=== PATIENT | female | born 1995 | race Caucasian/White ===

== ENCOUNTER 2022-09-12 22:18 | Inpatient (IN) ==
[2022-09-12] MEDS ORDERED: OXYTOCIN 30 UNITS/500 ML BAG IV PRN ×2 (23:20)
[2022-09-12] MEDS ORDERED: LIDOCAINE 1% LOCAL 20 ML VIAL INFIL PRN (23:20)
--- NOTE | 2022-09-12 23:27 | History & Physical Report ---
Date of Service September 12, 2022 Assessment & Plan (1) Supervision of normal intrauterine in primigravida: Plan: Admit to L&D. EFM/toco. Labs. Will add CMP d/t initial BPs elevated - will continue to monitor blood pressures. She plans for an epidural. History of Present Illness Chief Complaint: spontaneous labor Primary Care Provider: Nicoledl Dempsey, 26yo @ 38 10/29, presented to L&D with contractions and cervical mucus discharge - concerned that she maybe ruptured membranes. + movement, no vaginal bleeding. Allergies Allergy/AdvReac Type Severity Reaction Status Date / Time amoxicillin Allergy Hives Verified 09/07/22 15:12 hydrocodone AdvReac Vomiting Verified 09/07/22 15:12 Home Medications Medication Instructions Recorded Confirmed Type cetirizine 10 mg tablet (Zyrtec) 10 mg PO DAILY PRN Allergy Symptoms 02/04/22 09/12/22 History escitalopram oxalate 10 mg tablet 10 mg PO DAILY 02/04/22 09/12/22 History (Lexapro) prenat.vits,dennis,[id number] 1 tab PO DAILY 02/04/22 09/12/22 History Patient History Medical History (Updated 09/12/22 @ 22:36 by Alma Koenig RN) Bunion of great toe of left foot Surgical History (Updated 02/04/22 @ 15:32 by Jeanine Simental) S/P wisdom tooth extraction Family History (Updated 02/04/22 @ 15:27 by Jeanine Simental) Mother Breast cancer Gestational diabetes Grandmother (Paternal) Ovarian cancer Other Anemia Diabetes Dyslipidemia Heart disease Hypertension Osteoporosis Social History (Updated 02/04/22 @ 15:16 by Jeanine Simental) Smoking Status: Never smoker Hx Alcohol Use: No Hx Substance Use: No Preferred Language: Russian Communication Ability: Effective Vulcanizer Required: No Beliefs That Will Affect Care: None marital status: marital status details: Kenn (29) [phone] Current Living Situation: Spouse Current Living Situation Comment: Kenn current occupational status: employed current occupation: Teacher Other Information That Helps Us Care for You: No Feels Safe at Home: Yes Safety Concerns: Feels Safe At This Time Assistive Devices: None Review of Systems All systems reviewed & are unremarkable except as noted in HPI & below Physical Exam Physical Exam: FHT Cat 1 [place] Q 2-4 min SVE 4/100/-1, bulging membranes. Neg nitrizine, neg pooling, neg valsalva. There is copious cervical mucus. Constitutional: WD/WN, vitals as above Respiratory: normal respiratory effort, lungs clear to auscultation no respiratory distress Cardiovascular: Rate/Rhythm: regular rate and regular rhythm Gastrointestinal (Abdomen): Inspection/Auscultation: abdomen normal to inspection Percussion/Palpation: abdomen soft; abdomen nontender Gravid. No s/s chorio or abruption. Skin: no rashes, warm and dry Psychiatric: A+Ox3, euthymic affect Results & Data ([facility]) Vital Signs (Past 12 Hours) Vital Signs Temp Pulse Resp BP 09/12/22 22:56 70 149/94 H 09/12/22 22:45 73 143/90 H 09/12/22 22:38 36.7 C 18 Coding Level of Care Code None Diagnoses Supervision of normal intrauterine in primigravida Z34.00
[2022-09-12] MEDS: LACTATED RINGER'S 1,000 ML IV PRN (23:45)
[2022-09-12] MEDS ORDERED: fentaNYL citrate 100 MCG/2 ML VIAL ONE (23:48)
[2022-09-12] MEDS ORDERED: ePHEDrine sulfate 50 MG/ML AMP ONE (23:48)
[2022-09-12] MEDS ORDERED: SODIUM CHLORIDE 0.9% INJ 10 ML VIAL ONE (23:49)
[2022-09-12] MEDS ORDERED: LIDOCAINE 2%/EPINEPHRINE 1:200,000 20 ML SDV ONE (23:49)
[2022-09-12] MEDS ORDERED: BUPIVACAINE 0.25% 30 ML VIAL ONE (23:49)
[2022-09-12] MEDS ORDERED: fentaNYL 2MCG/ML ROPIVACAINE 1.25MG/ML 100 ML BAG EPI ONE (23:50)
[2022-09-13 00:05] LABS: Albumin Globulin Ratio 1.2 (0.9-2); Albumin Level 4.1 gm/dl (3.4-5.0); BUN Creatinine Ratio 19.7 (10-20); Bilirubin,Total 0.5 mg/dl (0.2-1.0); Creatinine Clr Calc Pharmacy 138.7 ml/min; Est GFR (African American) 139.3 ml/min; Est GFR (Non-African American) 120.2 ml/min; Globulin 3.4 gm/dl (2.5-4.0); Potassium 3.8 mmol/L (3.5-5.1); Total Protein 7.5 gm/dl (6.0-8.3)
[2022-09-13 00:13] LABS: Hematocrit (blood only) 38.1 % (37.0-47.0); Hemoglobin 13.4 g/dl (12.0-16.0); Mean Corpuscular Hemoglobin 29.6 pg (25.0-34.0); Mean Corpuscular Hgb Conc 35.2 g/dL (32.0-36.0); Mean Corpuscular Volume 84.1 fL (80.0-100.0); Mean Platelet Volume 12.6 fL (9.4-12.4); Platelet Count 173 K/uL (130-400); RDW Coefficient of Variation 12.6 % (11.5-14.5); RDW Standard Deviation 37.5 fL (36.4-46.3); Red Blood Count 4.53 M/uL (4.20-5.40); White Blood Count 13.69 K/ul (4.8-10.8)
[2022-09-13] MEDS ORDERED: NALBUPHINE HCL INJ 10 MG/ML AMP IV PRN (00:39)
[2022-09-13] MEDS ORDERED: diphenhydrAMINE 50 MG/ML VIAL IV PRN (00:39)
[2022-09-13] MEDS ORDERED: ePHEDrine sulfate 50 MG/ML AMP IV PRN (00:39)
[2022-09-13] MEDS ORDERED: ONDANSETRON INJ 2 MG/ML 2 ML VIAL IV PRN (00:39)
[2022-09-13] MEDS ORDERED: fentaNYL 2MCG/ML ROPIVACAINE 1.25MG/ML 100 ML BAG EPI PRN (00:39)
[2022-09-13] MEDS ORDERED: NALOXONE HCL 0.4 MG/1 ML VIAL/CARP IV PRN (00:39)
[2022-09-13] MEDS ORDERED: NALOXONE HCL 1 MG in SODIUM CHLORIDE 0.9% 1000ML 1,000 ML IV PRN (00:39)
--- NOTE | 2022-09-13 00:39 | Anesthesiology Consultation ---
Date of Service September 13, 2022 Assessment & Plan ASA ASA2 Proposed Anesthesia Anesthesia Type: Labor Epidural Risk / Benefits Reviewed With: PT / POA / Parent / Guardian, Accepts Plan and Informed Consent Obtained History Height/Weight Height: 5 ft 5 in Weight: 87.543 kg Allergies Allergy/AdvReac Type Severity Reaction Status Date / Time amoxicillin Allergy Hives Verified 09/07/22 15:12 hydrocodone AdvReac Vomiting Verified 09/07/22 15:12 Medications Home Medications Medication Instructions Recorded Confirmed Last Taken cetirizine 10 mg tablet (Zyrtec) 10 mg PO DAILY PRN Allergy Symptoms 02/04/22 09/12/22 08/25/21 escitalopram oxalate 10 mg tablet 10 mg PO DAILY 02/04/22 09/12/22 09/11/22 (Lexapro) prenat.vits,dennis,jwf-sgut-kazof 1 tab PO DAILY 02/04/22 09/12/22 09/11/22 Active Medications Generic Name Dose Route Start Last Admin Trade Name Freq PRN Reason Stop Dose Admin Lactated Ringer's 1,000 mls @ 125 mls/hr 09/12/22 23:20 09/13/22 00:43 Lr IV 09/14/22 23:19 125 mls/hr .Q8H PRN Administration L&D Protocol Protocol Ropivacaine 100 ml 09/13/22 00:39 09/13/22 01:00 Fentanyl 2mcg/Ml Ropivacaine 1.25mg/Ml 100 Ml Bag EPI 09/14/22 00:38 100 ml PRN PRN Administration Pain R/T Labor Protocol Past Medical History Medical History Bunion of great toe of left foot Exercise / Class Metabolic Activity II 4-5 Yardwork/Stairs/Walk up hill Past Family History Family History Mother Breast cancer Gestational diabetes Grandmother (Paternal) Ovarian cancer Other Anemia Diabetes Dyslipidemia Heart disease Hypertension Osteoporosis Past Surgical History Surgical History S/P wisdom tooth extraction Past Anesthesia History No Hx of Anesthesia Complications and No Family Hx of Anesthesia Complications History of PONV No Hx of PONV and No Hx of Motion Sickness Social History Smoking Status: Never smoker Hx Alcohol Use: No Hx Substance Use: No Review of Systems denies fever/cough/ colds/ chest pain/ SOB/ WANDA denies WANDA Physical Exam Vital Signs Last Vital Signs Temp 36.5 C 09/13/22 01:15 Pulse 80 09/13/22 01:32 Resp 18 09/13/22 01:15 BP 139/69 09/13/22 01:19 Pulse Ox 99 09/13/22 01:32 ENMT Mouth: no TMJ abnormality and no dentition abnormality Thyromental Distance: > or= 3.5 Finger Breadths Mallampati Class: II Neck neck extension not limited Respiratory normal respiratory effort; no respiratory distress Auscultation: lungs clear to auscultation bilaterally Cardiovascular Rate/Rhythm: regular rate and regular rhythm Neurologic moves all extremities Psychiatric Orientation: alert and oriented x 3 Testing Laboratory Results 09/12/22 23:30 09/12/22 23:30
[2022-09-13] MEDS: LACTATED RINGER'S 1,000 ML IV PRN (00:43)
--- NOTE | 2022-09-13 04:23 | Labor Progress Brief Note ---
Date of Service September 13, 2022 Subjective Comfortable with epidural. FHT Cat 1 [place] Q 1-2 SVE anterior lip/100/+1 Continue labor. Assessment & Plan Admission and Anticipated Discharge Date Admission Date: September 12, 2022 Results & Data ([facility]) Vital Signs (Past 12 Hours) Vital Signs Temp Pulse Resp BP Pulse Ox 09/13/22 04:19 96 H 137/77 09/13/22 04:17 80 98 09/13/22 04:12 91 H 98 09/13/22 04:07 80 96 09/13/22 04:04 78 143/92 H 09/13/22 04:02 85 97 09/13/22 03:57 78 97 09/13/22 03:52 83 97 09/13/22 03:50 76 141/91 H 09/13/22 03:47 78 97 09/13/22 03:42 75 97 09/13/22 03:37 76 98 09/13/22 03:35 82 152/86 H 09/13/22 03:30 16 09/13/22 03:30 16 09/13/22 03:32 77 97 09/13/22 03:27 83 99 09/13/22 03:22 74 98 09/13/22 03:20 78 136/85 09/13/22 03:17 82 99 09/13/22 03:12 77 95 09/13/22 03:07 78 95 09/13/22 03:04 82 144/75 H 09/13/22 03:02 94 09/13/22 03:02 76 09/13/22 03:02 78 94 09/13/22 03:00 18 09/13/22 03:00 18 09/13/22 02:57 94 09/13/22 02:57 77 09/13/22 02:57 78 94 09/13/22 02:52 78 94 09/13/22 02:51 79 94 09/13/22 02:50 75 132/73 09/13/22 02:47 81 95 09/13/22 02:46 81 94 09/13/22 02:42 84 95 09/13/22 02:37 86 95 09/13/22 02:35 77 132/70 09/13/22 02:32 81 95 09/13/22 02:30 16 09/13/22 02:30 16 09/13/22 02:27 84 97 09/13/22 02:22 78 97 09/13/22 02:19 96 H 134/75 09/13/22 02:17 88 97 09/13/22 02:12 81 97 09/13/22 02:07 75 98 09/13/22 02:04 74 128/69 09/13/22 02:00 16 09/13/22 02:00 16 09/13/22 02:02 81 97 09/13/22 01:57 91 H 99 09/13/22 01:52 79 100 09/13/22 01:49 76 129/72 09/13/22 01:47 78 99 09/13/22 01:30 18 09/13/22 01:30 18 09/13/22 01:42 78 98 09/13/22 01:37 78 99 09/13/22 01:36 71 134/73 09/13/22 01:32 80 99 09/13/22 01:27 83 99 09/13/22 01:10 16 09/13/22 01:10 16 09/13/22 01:22 79 99 09/13/22 01:19 81 139/69 09/13/22 01:17 99 09/13/22 01:17 85 09/13/22 01:18 103 H 162/88 H 09/13/22 01:17 69 157/82 H 09/13/22 01:15 36.5 C 18 09/13/22 01:12 81 99 09/13/22 01:11 86 148/85 H 09/13/22 00:58 16 09/13/22 00:58 16 09/13/22 01:09 81 141/84 H 09/13/22 01:07 99 09/13/22 01:07 87 09/13/22 01:07 83 154/87 H 09/13/22 01:05 83 18 152/85 H 09/13/22 01:03 75 154/84 H 09/13/22 01:02 81 100 09/13/22 01:01 79 159/74 H 09/13/22 00:59 73 163/74 H 09/13/22 00:57 90 100 09/13/22 00:52 89 100 09/13/22 00:47 74 100 09/13/22 00:48 79 182/82 H 09/13/22 00:41 72 99 09/13/22 00:36 75 99 09/13/22 00:31 76 99 09/13/22 00:26 79 99 09/12/22 22:56 70 149/94 H 09/12/22 22:45 73 143/90 H 09/12/22 22:38 36.7 C 18 Coding Level of Care Code None Diagnoses
--- NOTE | 2022-09-13 07:23 | Delivery Summary ---
Vaginal Delivery Summary Date of Service September 13, 2022 Vaginal Delivery Summary and 2nd Degree LAC Vaginal Delivery Summary: Pre-delivery diagnoses: 26yo @ 38 11/28, spontaneous labor Post-delivery diagnoses: same Procedure: spontaneous vaginal delivery, repair of 2nd degree laceration, right periurethral laceration Surgeon: Hayde Hylton DO Complications: none Findings: Viable male . Apgars and weight pending, please see nursery records. Estimated blood loss: 300ml Description of delivery: The patient progressed to complete with epidural anesthesia. She then began to push. She spontaneously vaginally delivered a viable from the cephalic presentation. The head delivered in JAY position. No nuchal cord. The anterior shoulder delivered, followed by the posterior shoulder, followed by the body. The baby was placed on mother's abdomen and a spontaneous cry was heard. Delayed cord clamping was employed, and the cord was doubly clamped and cut. Cord blood was obtained. The placenta was delivered spontaneously intact with a 3-vessel cord. The uterus and vagina were swept of clots and debris. IV pitocin was given. The uterus became firm. The cervix, vagina, and perineum were inspected and a 2nd degree and right periurethral laceration were noted. Lidocaine infused for better anesthetic. These were repaired with 3-0 Vicryl. Excellent hemostasis was observed. The mother and baby are recovering in stable and good condition in the room. Sponge, needle and instrument counts were correct x 2. Hayde Hylton DO [facility] Vaginal Delivery Charge Vaginal Delivery Codes: 38235 global code for the antepartum, delivery, and post- Delivery Type Details: and 2nd Degree LAC
[2022-09-13] MEDS ORDERED: CETIRIZINE HCL 10 MG TABLET PO PRN (07:33)
[2022-09-13] MEDS ORDERED: BENZOCAINE 20% AER SPR 82.5 GM CAN EXT PRN (07:33)
[2022-09-13] MEDS ORDERED: OXYTOCIN 30 UNITS/500 ML BAG IV PRN (07:33)
[2022-09-13] MEDS ORDERED: ACETAMINOPHEN 325 MG TAB PO PRN (07:33)
[2022-09-13] MEDS ORDERED: DIPHTHERIA/TETANUS/PERTUSSIS 0.5mL SYR/VIAL (Age 7+yrs) IM ONE (07:33)
[2022-09-13] MEDS ORDERED: oxyCODONE/ACETAMINOPHEN 5mg/325mg TAB PO PRN (07:33)
[2022-09-13] MEDS ORDERED: bisacodyL 10 MG SUPP PR PRN (07:33)
[2022-09-13] MEDS ORDERED: HYDROCORTISONE ACETATE 25 MG SUPP PR PRN (07:33)
--- NOTE | 2022-09-13 07:47 | Anesthesia Procedure Note ---
Date of Service September 13, 2022 Anesthesia Post Epidural Note Vital Signs Vital Signs: Temp Pulse Resp BP Pulse Ox 36.8 C 97 H 18 134/70 98 09/13/22 04:25 09/13/22 07:43 09/13/22 07:00 09/13/22 07:43 09/13/22 06:56 Notes Mental Status: alert / awake / arousable and participated in evaluation Nausea / Vomiting: adequately controlled Pain: adequately controlled Airway Patency, RR, SpO2: stable & adequate BP & HR: stable & adequate Hydration State: stable & adequate Neuraxial Anesthesia: was administered and sensory block is resolving Anesthetic Complications: no major complications apparent and Pt Satisfied with anesthetic care Epidural: Removed without complications and With tip intact
[2022-09-13] MEDS: IBUPROFEN 600 MG TAB PO PRN ×3 (08:18→20:50)
[2022-09-13] MEDS: DOCUSATE SODIUM 100 MG CAP PO SCH ×2 (08:19→20:43)
[2022-09-13] MEDS: PRENATAL VITAMIN 1 TAB PO SCH (08:19)
[2022-09-13] MEDS: ESCITALOPRAM OXALATE 10 MG TAB PO SCH (09:35)
--- NOTE | 2022-09-14 04:47 | Obstetrical Progress Note ---
Date of Service September 14, 2022 Assessment & Plan (1) care following vaginal delivery: Plan - Overall, feeling well and eating well today - Infant feeding going well without concern - Urinating and passing gas appropriately - Ambulating well in room - Pain controlled w/ Ibuprofen - Hgb 13.4 on 09/12 - BP elevated (primarily 140s/80s, few elevations 160/90+ overnight), asymptomatic, monitor closely - Routine PP care progressing well - Anticipate discharge @ 24-48 hours PP - Recommending f/u outpatient in 6 weeks Admission and Anticipated Discharge Date Admission Date: September 12, 2022 Supervising Physician Co-Signing Physician Notes Resident Physician Supervision Note: I interviewed and examined the patient. Discussed with Dr. Calvert and agree with findings and plan as documented in the note. Any exceptions or clarifications are listed here: PP1 s/p , doing well. VSS, had few mild ranges but nothing severe, normal repeats. Exam benign and wnl. Continue rout pp care, continue monitoring bps. Meds not indicated currently Documented By: Macey Moore MD Joshua Chand is a 26F who is PPD # 1 following delivery at 38 5/7. She reports feeling well overall this morning. - Ambulation - well throughout room - Voiding/Gallardo - independent voids, no dysuria or pressure - Gas/Stool - passing gas, no bowel movement - Diet - regular, no nausea or emesis - Lochia - diminishing, light amount - Infant Feeding Type - breast feeding - Pain Level - 1/10, controlled with Ibuprofen Review of Systems - Denies fever, chills, sweats - Denies shortness of breath, difficulty breathing, chest pain, palpitations, chest pressure. - Denies breast pain. - Denies dysuria. - Denies headache or changes in vision. Physical Exam Physical Exam: General: Alert, oriented. No acute distress. Cardiac: RRR, normal S1/S2, no murmurs/rubs/gallops. Respiratory: Non-labored, CTAB, no wheezes/rales/rhonchi. Symmetric chest rise. Abdomen: Soft, nontender, nondistended. Bowel sounds present. Uterus: Uterine fundus firm, palpable 2 cm below umbilicus. Lower Extremities: No lower extremity edema or swelling. No deep calf pain. Amanda's negative bilaterally. Results & Data ([facility]) Vital Signs (Past 12 Hours) Vital Signs Temp Pulse Resp BP Pulse Ox O2 Del Method 09/14/22 02:03 36.4 C L 88 19 145/88 H 98 Room Air 09/13/22 20:30 37.0 C 90 18 124/81 97 Room Air Resident Activity Tracking Resident Involvement: Resident Care Provided Care Provided: OB Delivery
[2022-09-14] MEDS: IBUPROFEN 600 MG TAB PO PRN ×3 (06:16→17:08)
[2022-09-14 07:24] LABS: Hematocrit (blood only) 32.5 % (37.0-47.0); Hemoglobin 11.1 g/dl (12.0-16.0)
[2022-09-14] MEDS: PRENATAL VITAMIN 1 TAB PO SCH (08:11)
[2022-09-14] MEDS: DOCUSATE SODIUM 100 MG CAP PO SCH ×2 (08:11→21:01)
[2022-09-14] MEDS: ESCITALOPRAM OXALATE 10 MG TAB PO SCH (08:11)
[2022-09-14] MEDS ORDERED: bisacodyL 5 MG TABEC PO SCH (20:00)
--- NOTE | 2022-09-15 05:31 | Obstetrical Progress Note ---
Date of Service September 15, 2022 Assessment & Plan (1) care following vaginal delivery: Plan - Overall, feeling well and eating well today - Infant feeding going well without concern - Urinating and passing gas appropriately - Ambulating well in room - Pain controlled w/ Ibuprofen - Hgb 13.4 on 09/12, 11.1 on 09/14 - BP improving (primarily 120s/80s, few elevations 140s/80s overnight), asymptomatic - Routine PP care progressing well - Anticipate discharge @ 24-48 hours PP - Recommending f/u outpatient in 6 weeks Admission and Anticipated Discharge Date Admission Date: September 12, 2022 Supervising Physician Co-Signing Physician Notes Resident Physician Supervision Note: I interviewed and examined the patient. Discussed with Dr. Calvert and agree with findings and plan as documented in the note. Any exceptions or clarifications are listed here: Doing well. Desires d/c. A few elevated blood pressures so will have a blood pressure check in one week. s/s of pet reviewed. Instructions given. Documented By: Crystal Kendrick MD, FACOG Subjective Jagruti is a 26F who is PPD # 2 following delivery at 38 5/7. She reports feeling well overall this morning. - Ambulation - well throughout room - Voiding/Gallardo - independent voids, no dysuria or pressure - Gas/Stool - passing gas, no bowel movement - Diet - regular, no nausea or emesis - Lochia - diminishing, light amount - Infant Feeding Type - breast feeding - Pain Level - 0/10, controlled with Ibuprofen Review of Systems - Denies fever, chills, sweats - Denies shortness of breath, difficulty breathing, chest pain, palpitations, chest pressure. - Denies breast pain. - Denies dysuria. - Denies headache or changes in vision. Physical Exam Physical Exam: General: Alert, oriented. No acute distress. Cardiac: RRR, normal S1/S2, no murmurs/rubs/gallops. Respiratory: Non-labored, CTAB, no wheezes/rales/rhonchi. Symmetric chest rise. Abdomen: Soft, nontender, nondistended. Bowel sounds present. Uterus: Uterine fundus firm, palpable 2 cm below umbilicus. Lower Extremities: No lower extremity edema or swelling. No deep calf pain. Amanda's negative bilaterally. Results & Data ([facility]) Vital Signs (Past 12 Hours) Vital Signs Temp Pulse Resp BP Pulse Ox O2 Del Method 09/15/22 00:00 36.5 C 74 18 129/84 97 Room Air Resident Activity Tracking Resident Involvement: Resident Care Provided Care Provided: OB Delivery
[2022-09-15] MEDS: PRENATAL VITAMIN 1 TAB PO SCH (08:32)
[2022-09-15] MEDS: ESCITALOPRAM OXALATE 10 MG TAB PO SCH (08:32)
[2022-09-15] MEDS: DOCUSATE SODIUM 100 MG CAP PO SCH (08:32)
== END 2022-09-15 10:15 | disposition home or self-care (01) | DRG 807 ==
LOC: OPB 22:18 → 4S1 22:19 → 4E2 09-13 09:35